=== PATIENT | male | born 1955 | race Caucasian/White ===

== ENCOUNTER 2020-12-29 05:27 | Day surgery (SDC) | payer OTHER ==
[2020-12-26 16:50] LABS: BASOPHILS 0.4 % (0-2); EOSINOPHILS 5.8 % (0-7); HEMATOCRIT 38.3 % (42.0-54.0); HEMOGLOBIN 12.2 g/dL (13.5-17.5); IMMATURE GRANULOCYTES 0.2 % (0-5); LYMPHOCYTE ABS# 0.98 10x3/uL (1.32-3.57); LYMPHOCYTES 17.9 % (15-50); MCHC 31.9 g/dL (31.0-37.0); MCV 97.5 fL (80.0-100.0); MEAN PLATELET VOLUME 12.1 fL (7.4-10.4); MONOCYTES 14.8 % (2-11); NEUTROPHIL ABS# 3.35 10x3/uL (1.78-5.38); NEUTROPHILS 60.9 % (40-80); PLATELET COUNT 165 10x3/uL (130-400); RBC 3.93 10x6/uL (4.20-6.10); RDW 17.7 % (11.5-14.5); WBC 5.5 10x3/uL (4.8-10.8)
[2020-12-26 17:08] LABS: ANION GAP 13.6 mmol/L (8-16); CALCIUM 10.1 mg/dL (8.5-10.1); CARBON DIOXIDE 27.9 mmol/L (21.0-32.0); CREATININE - SERUM 1.1 mg/dL (0.6-1.3); POTASSIUM - SERUM 3.5 mmol/L (3.5-5.1)
[~2020-12-29] VITALS: Ht 177.8 cm; Wt 106.8 kg
[2020-12-29] VITALS (11 sets, daily range): BP systolic 128–158; BP diastolic 84–106; Ht 177.8 cm; Wt 106.8 kg
--- NOTE | ~2020-12-29 | OP ---
PATIENT NAME: SP OSEI MEDICAL RECORD: [id number] :55 LOCATION:[facility] ADMISSION DATE: SURGEON: GRACE PFEIFFER MD DATE OF OPERATION: 12/29/2020 DATE OF SERVICE: 12/29/2020 PREOPERATIVE DIAGNOSES: Osteophyte formation and disk herniation with spinal cord compression at C4-C5 and C5-C6 with bilateral C5 and C6 radiculopathies. POSTOPERATIVE DIAGNOSES: Osteophyte formation and disk herniation with spinal cord compression at C4-C5 and C5-C6 with bilateral C5 and C6 radiculopathies. PROCEDURE: Anterior cervical discectomy and fusion at C4-C5 and C5-C6 with Zavation anterior cervical plate and screws, separate PEEK interbody cages, bone stem cell allograft from [place]. SURGEON: Grace Pfeiffer MD DESCRIPTION OF PROCEDURE: After induction of general endotracheal anesthesia, the patient was positioned supine on the operating table. Neck was prepped and draped in the usual sterile fashion. Fluoroscopic x-ray and freer localized the C4-C5 interspace. A transverse skin incision was carried out from the midline to the sternocleidomastoid muscle. After infiltration of 1:100,000 epinephrine with 1% lidocaine, the platysma was divided with sharp dissection. Using blunt and sharp dissection with Metzenbaum scissors, I proceeded in the avascular plane medial to the carotid sheath. The C4-C5 interspace was identified with fluoroscopic x-ray and a spinal needle. The longus colli muscles are elevated from the bodies of C4, C5, and C6. [place] distracting pins were placed by the C4, C5 and C6. The disk material was incised at each interspace. The disk was removed as well as cartilaginous endplates with curettes and pituitary rongeurs. Following this, there was excellent removal of disk material at each interspace. Posteriorly, osteophytes were drilled away with the Midas Mikal drill under microscopic illumination. At each interspace, a PEEK interbody cage was placed in the disk space under distraction. Prior to this, it was filled with bone stem cell allograft. Next, a separate anterior cervical plate and screws was used to span the C4-C5 and C5-C6 interspaces. Self-drilling screws were placed in the holes and the plate. Locking cams were tightened down over the screw heads. Good position of the hardware was confirmed with fluoroscopic x-ray. Retractors were removed. The platysma and subdermal layer closed with interrupted 4-0 Vicryl suture. Skin was reapproximated with Steri-Strips and benzoin. A sterile dressing was applied to the wound. The patient was awakened in good condition and taken to recovery. All counts are reported as correct. ESTIMATED BLOOD LOSS: Minimal. TRANSINT:[id number] Voice Confirmation ID: [id number] DOCUMENT ID: [id number] OPERATIVE REPORT [id number] SP OSEI JOHN MD CC: [id number] DICTATION DATE: 01/10/21804 [employer] TESTING TECHNICIAN: 01/10/21 0941 [facility] [place] 12/30/20 [id number] [place] [address]
[~2020-12-29 05:27] MED LIST: COZAAR50 MG PO; CYCLOBENZAPRINE10 MG PO; HCTZ25 MG PO; HYDROCODON-ACE1 EAC7 PO; MOBIC7.5 MG PO; NORVASC5 MG PO; PROSCAR5 MG PO; TERAZOSIN HCL2 MG PO; TOPROL XL100 MG PO
[2020-12-29 06:25] LABS: HCG URINE NEGATIVE
[2020-12-30] VITALS: BP 126/72
[2020-12-30 04:00] VITALS: BP 132/87
--- NOTE | 2020-12-30 08:04 | NUR ---
PT URINAL EMPTIED AT 250 ML. PT VOICES CONCERNS OVER BREAKFAST. INFORMED HIM THAT I HAD ALREADY ADVANCED HIS DIET PER ORDER SINCE HE HAS COMFORTABLY BEEN ABLE TO HANDLE THE JELLO AND ICE CREAM. HE VOICED UNDERSTANDING AND THANKS. INCISION TO RIGHT ANTERIOR NECK IS CDI. NO ABNORMALITIES NOTED. CL IN REACH. NO FURTHER NEEDS AT THIS TIME. PT IS "READY TO GO HOME." TM
[2020-12-30 08:14] VITALS: BP 138/84
[2020-12-30] MEDS ORDERED: MEDROL DOSE PACK4 MG PO (08:47)
[2020-12-30] MEDS ORDERED: HYDROCODON-ACE1 EA10 PO (08:47)
--- NOTE | 2020-12-30 10:36 | NUR ---
PT RESTING AT THIS TIME. NO NEEDS. WCTM
--- NOTE | 2020-12-30 11:52 | NUR ---
PT UP SITTING IN CHAIR EATING LUNCH. SL AT THIS TIME SINCE HE WILL BE DISCHARGING. CL IN REACH. NO FURTHER NEEDS AT THIS TIME. WCTM
[2020-12-30 12:57] VITALS: BP 153/97
--- NOTE | 2020-12-30 13:35 | NUR ---
IV THERAPY REMOVED FROM RIGHT HAND WITH TIP INTACT. DISCHARGE INSTRUCTIONS GIVEN. PT VERBALIZED UNDERSTANDING. WAITING ON BROTHERS ARRIVAL FOR HIS DEPARTURE.
== END 2020-12-30 13:38 | disposition home or self-care (01) ==
LOC: D.OPS 05:27 → D.ICU 09:58 → D.CVICU 11:48 → D.OPS 12:00 → D.M3 18:31 → D.OPS 12-30 13:38
PROVIDERS: Anesthesiology; ATTEND Neurological Surgery
DX: M25.78 Osteophyte, vertebrae (principal); M50.221 Other cervical disc displacement at C4-C5 level; M50.222 Other cervical disc displacement at C5-C6 level; M54.12 Radiculopathy, cervical region; I10 Essential (primary) hypertension; D50.9 Iron deficiency anemia, unspecified; G95.20 Unspecified cord compression